=== PATIENT | male | born 1935 | race Caucasian/White ===

== ENCOUNTER → 2019-12-30 | Outpatient (CLI) | payer MEDICARE, BC ==
[~2019-12-30] VITALS: Ht 182 cm; Wt 78.0 kg
[~2019-12-30] MED LIST: HOLD METFORMIN - RECEIVED CONTRAST 20 ML VIAL IV SCH; IOHEXOL 350 MG/ML 150 ML (OMNIPAQUE 350) VIAL IV ONE; NS 100 ML (IVPB) BAG IV ONE; REGADENOSON 0.4 MG/5 ML SYR (LEXISCAN) IV ONE
[2019-12-30 09:56] LABS: BASOPHILS % (AUTO) 0 % (0-10); EOSINOPHILS # (AUTO) 0.1 10^3/uL (0.0-0.3); EOSINOPHILS % (AUTO) 2 % (0-10); HEMATOCRIT 46 % (40-54); HEMOGLOBIN 15.6 G/DL (13.3-17.7); LYMPHOCYTES # (AUTO) 1.3 X 10^3 (1.0-4.0); LYMPHOCYTES % (AUTO) 19 % (12-44); MEAN CORPUSCULAR HEMOGLOBIN 32 PG (25-34); MEAN CORPUSCULAR HGB CONC 34 G/DL (32-36); MEAN CORPUSCULAR VOLUME 95 FL (80-99); MONOCYTES % (AUTO) 14 % (0-12); NEUTROPHILS # (AUTO) 4.7 X 10^3 (1.8-7.8); NEUTROPHILS % (AUTO) 66 % (42-75); PLATELET COUNT 207 10^3/uL (130-400); WHITE BLOOD COUNT 7.1 10^3/uL (4.3-11.0)
[2019-12-30 10:20] LABS: ALANINE AMINOTRANSFERASE 17 U/L (0-55); ALBUMIN 4.1 GM/DL (3.2-4.5); ALKALINE PHOSPHATASE 66 U/L (40-136); BILIRUBIN,TOTAL 0.8 MG/DL (0.1-1.0); BUN/CREATININE RATIO 20; CALCIUM 9.1 MG/DL (8.5-10.1); CARBON DIOXIDE 30 MMOL/L (21-32); CHLORIDE 103 MMOL/L (98-107); CHOLESTEROL 142 MG/DL (< 200); CREATININE SERUM 0.95 MG/DL (0.60-1.30); ERYTHROCYTE SEDIMENTATION RATE 1 MM/HR (0-30); GFR ESTIMATED > 60; GLUCOSE 102 MG/DL (70-105); HDL CHOLESTEROL 72 MG/DL (40-60); MAGNESIUM 2.1 MG/DL (1.6-2.4); POTASSIUM 4.3 MMOL/L (3.6-5.0); SODIUM 141 MMOL/L (135-145); TOTAL PROTEIN 7.1 GM/DL (6.4-8.2); TRIGLYCERIDES 57 MG/DL (<150); VLDL CHOLESTEROL 11 MG/DL (5-40)
[2019-12-30] MEDS: CATHETER FLUSH 10 ML SYR IV PRN (11:02)
--- NOTE | 2019-12-30 12:16 | Diagnostic Imaging Report ---
EXAMINATION: CT angiography of the chest. TECHNIQUE: Contrast enhanced thin section helical images were obtained through the chest with intravenous contrast timed for the optimal opacification of the arterial structures per CTA protocol. Post-processing, reconstructions and interpretation of angiographic images of the vessels was performed. 3D MIP reconstructions were performed and reviewed. All CT scans use one or more of the following dose optimizing techniques: automated exposure control, MA and/or KvP adjustment based on a patient size and exam type, or iterative reconstruction. HISTORY: Aortic aneurysm. COMPARISON: None available. FINDINGS: The aortic root measures 3.8 x 3.9 x 3.8 cm when measured from commissure to cusp. The sinotubular junction measures 3.8 x 3.4 cm. The ascending aorta measures 3.8 x 4.0 cm. The arch measures 3.4 x 3.2 cm. There is no edema or pneumonia. No pleural effusion. No pneumothorax. No suspicious nodules. There are mild nonspecific peripheral reticulations. There is no axillary or supraclavicular lymphadenopathy. There is no mediastinal lymphadenopathy. The ventricles are mildly dilated. There are moderate coronary artery calcifications. No pericardial effusion. Limited views of the upper abdomen show simple cysts in the liver and cholelithiasis. There are no suspicious osseus lesions. There are compression fractures of T12, T11, T6, T5, T4 and T3. The T5 compression fracture is severe with 80% height loss. These are suspected to be chronic. IMPRESSION: 1. . Aortic root is normal in caliber. Ascending aorta is borderline enlarged measuring up to 4.0 cm. Dictated by: Dictated on workstation # [id number]
[2019-12-30 13:15] VITALS: BP 142/94
== END ==
LOC: RAD 10:15
PROVIDERS: ATTEND Internal Medicine Cardiovascular Disease
DX: I25.10 Atherosclerotic heart disease of native coronary artery without angina pectoris (principal); I71.9 Aortic aneurysm of unspecified site, without rupture; I10 Essential (primary) hypertension; E78.5 Hyperlipidemia, unspecified; I65.29 Occlusion and stenosis of unspecified carotid artery; Z86.79 Personal history of other diseases of the circulatory system
CPT/HCPCS: 71275; 78452; 80053; 80061; 83735; 84443; 85025; 85652; 93017; 93306; A9502; 36415

== ENCOUNTER → 2020-01-02 | Outpatient (CLI) | payer MEDICARE, BC ==
[~2020-01-02] MED LIST changes: +CATHETER FLUSH 10 ML SYR IV PRN; -HOLD METFORMIN - RECEIVED CONTRAST 20 ML VIAL IV SCH; -IOHEXOL 350 MG/ML 150 ML (OMNIPAQUE 350) VIAL IV ONE; -NS 100 ML (IVPB) BAG IV ONE; -REGADENOSON 0.4 MG/5 ML SYR (LEXISCAN) IV ONE
--- NOTE | 2020-01-02 14:20 | Diagnostic Imaging Report ---
PROCEDURE: CT abdomen and pelvis without contrast. TECHNIQUE: Multiple contiguous axial images were obtained through the abdomen and pelvis without the use of intravenous contrast. Auto Exposure Controls were utilized during the CT exam to meet ALARA standards for radiation dose reduction. INDICATION: Prostate cancer. FINDINGS: There are no prior CT abdomen/pelvis examinations available for comparison. The recent CTA chest exam of 12/30/2019 did note cholelithiasis and benign-appearing cysts involving the liver. Those findings are again evident on this study. The spleen, pancreas, adrenals, kidneys, aorta, and inferior vena cava show no sign of an acute abnormality. The stomach is partially filled with fluid and consequently difficult to assess. There are numerous diverticula throughout the sigmoid and descending colon, but there is no evidence for acute diverticulitis; however, a portion of the sigmoid colon has extended into the left inguinal canal. I would estimate the length of this segment of the colon to be approximately 25 cm. There is no obstruction of the colon, but this portion of the colon may be incarcerated. There is no pelvic mass or free fluid collection noted. The prostate gland is not enlarged. The urinary bladder is grossly unremarkable. The appendix is not well visualized, but there are no indirect signs of acute appendicitis. The suspected chronic compression fracture of T12 seen on the CTA chest exam is again evident. There is also a mild compression deformity of the superior endplate of L1 and I suspect this finding is chronic in nature. However, there is a 30-40% compression fracture of the superior endplate of L4. This injury is indeterminate in age but could be subacute. If further imaging is desired, then MRI will be recommended. The chronic pulmonary changes involving the lung bases noted on the prior study are again evident and no different. IMPRESSION: 1. There is diverticulosis of the sigmoid and descending colon, but there is no evidence for acute diverticulitis; however, a segment of the sigmoid colon has extended into the left inguinal canal. There is no obstruction of the bowel, but this segment of the colon may be incarcerated. 2. There is no acute abnormality of the abdomen or pelvis noted otherwise. 3. There is cholelithiasis without evidence for acute cholecystitis. 4. The compression deformity of the superior endplate of L4 is indeterminate in age. Recommendations as above. Dictated by: Dictated on workstation # [id number]
--- NOTE | 2020-01-02 17:19 | Diagnostic Imaging Report ---
INDICATION: Prostate carcinoma. Patient was administered 24.9 mCi technetium 99m MDP intravenously and whole-body imaging was performed after a three-hour delay. COMPARISON: No prior studies are available for comparison. Normal uptake of activity by the axial and appendicular skeleton is noted. There is uptake by the kidneys with excretion into the urinary bladder. There is a focus of intense uptake at the level of the mid thoracic spine to the right of midline near the costovertebral junction. Significant degenerative changes are identified on the CT chest performed on 12/30/2019. There is also mild uptake in the lumbar spine, likely correlating with the compression fracture at L4 seen on CT. There is mild uptake bilateral knees and feet which is degenerative. No other suspicious foci are seen. IMPRESSION: Chronic appearing changes. No definite scintigraphic evidence of osseous metastatic disease is identified. Dictated by: Dictated on workstation # [id number]
== END ==
LOC: CARD 11:58
PROVIDERS: ATTEND Urology
DX: C61 Malignant neoplasm of prostate (principal); K57.30 Diverticulosis of large intestine without perforation or abscess without bleeding; K80.20 Calculus of gallbladder without cholecystitis without obstruction
CPT/HCPCS: 74176; 78306; A9503

== ENCOUNTER → 2020-01-05 | Outpatient (CLI) | payer MEDICARE, BC ==
[~2020-01-05] MED LIST changes: -CATHETER FLUSH 10 ML SYR IV PRN; +HOLD METFORMIN - RECEIVED CONTRAST 20 ML VIAL IV SCH; +IOHEXOL 350 MG/ML 150 ML (OMNIPAQUE 350) VIAL IV ONE; +NS 100 ML (IVPB) BAG IV ONE
--- NOTE | 2020-01-05 12:52 | Diagnostic Imaging Report ---
CTA AORTA W LEW RUNOFF W/WO Technique: CT imaging of the abdomen, pelvis and bilateral lower extremities was performed with IV contrast. 3-D MIP reformats are created and submitted. Automatic exposure controls were utilized to keep dose as low as reasonably achievable. Indication: Coronary artery disease, hyperlipidemia, carotid arterial disease. History of aneurysm. Comparison: CT chest of 12/30/2019. CT abdomen pelvis of 01/02/2020. Findings: Aorta: The abdominal aorta is normal in caliber with mild atherosclerotic plaquing and no dissection. The bilateral common iliac arteries are tortuous and the left is borderline aneurysmal measuring 1.5 cm. Both common iliac arteries are widely patent. The bilateral internal and external iliac arteries are patent. The celiac and superior mesenteric arteries are patent. Bilateral renal arteries are also patent without appreciable stenosis. Right lower extremity: The common femoral artery is normal. The superficial femoral artery is widely patent throughout the thigh without stenosis or plaquing. Profunda femoris arteries are normal. Popliteal artery is normal. There is a 3 vessel branching pattern in the proximal lower leg. However, in the mid aspect of the lower leg into the level of the ankle there is poor contrast opacification as the contrast bolus was likely "outrun". However, peripheral vascular disease could also account for this suboptimal opacification. Left lower extremity: Common femoral artery is patent. Superficial femoral artery is widely patent throughout the thigh and there is no stenosis or plaquing. Profunda femoris branches are normal. Popliteal artery is widely patent. There is a 3 vessel branching pattern in the proximal lower leg. However, there is suboptimal opacification of the lower leg arteries to assess for patency. Atherosclerotic plaquing is present. Abdomen and pelvis: The abdomen and pelvis are more completely evaluated on CT from 01/02/2020. Since that examination, there has been no change in the cholelithiasis and hepatic cysts. No features of intra-abdominal neoplasm or acute process. No lymphadenopathy. Indirect left inguinal hernia containing loop of colon and fat is unchanged. No worrisome focal osseous lesions. IMPRESSION: 1. No abdominal aortic aneurysm. Borderline aneurysmal dilatation of the left common iliac artery measuring 1.5 cm. 2. Widely patent arteries throughout the thighs and proximal lower legs. 3. Assessment of the lower leg arteries is limited due to suboptimal opacification and calcified plaquing. Arterial Doppler of the lower legs may provide assessment of these arteries if deemed clinically indicated. 4. Unchanged left inguinal indirect hernia containing a loop of colon. No obstruction or strangulation. Dictated by: Dictated on workstation # [id number]
== END ==
LOC: RAD 09:45
PROVIDERS: ATTEND Internal Medicine Cardiovascular Disease
DX: I70.202 Unspecified atherosclerosis of native arteries of extremities, left leg (principal); K40.90 Unilateral inguinal hernia, without obstruction or gangrene, not specified as recurrent; I65.23 Occlusion and stenosis of bilateral carotid arteries; E78.5 Hyperlipidemia, unspecified; I10 Essential (primary) hypertension; I25.10 Atherosclerotic heart disease of native coronary artery without angina pectoris; Z86.79 Personal history of other diseases of the circulatory system
CPT/HCPCS: 75635

== ENCOUNTER 2020-02-20 10:26 | Outpatient (RCR) | payer MEDICARE, BC | END 2020-05-20 | disposition home or self-care (01) | LOC: ONC 10:26 | PROVIDERS: ATTEND Radiology Radiation Oncology | DX: C61 Malignant neoplasm of prostate (principal) | CPT/HCPCS: 99204 ==

== ENCOUNTER 2020-09-14 05:41 | Outpatient (CLI) | payer MEDICARE, BC ==
[~2020-09-14] VITALS: Ht 182.9 cm; Wt 77.2 kg
[2020-09-15] MEDS ORDERED: GLUC-173 PO (14:11)
[2020-09-15] MEDS ORDERED: ATOR20TA49 PO (14:11)
[2020-09-15] MEDS ORDERED: ZINC50TA58 PO (14:11)
[2020-09-15] MEDS ORDERED: MAGN500C15 PO (14:11)
[2020-09-15] MEDS ORDERED: MULT-974 PO (14:11)
[2020-09-15] MEDS ORDERED: FLAX10004 PO (14:11)
[2020-09-15] MEDS ORDERED: CALC600T91 PO (14:11)
[2020-09-15] MEDS ORDERED: ASPI-999 PO (14:11)
[2020-09-15] MEDS ORDERED: UBID100C17 PO (14:11)
[2020-09-15] MEDS ORDERED: CARV3.122 PO (14:11)
[2020-09-15] MEDS ORDERED: VIT1CAPS44 PO (14:11)
[2020-09-15] MEDS ORDERED: CHOL100045 PO (14:11)
== END 2020-09-15 14:44 | disposition home or self-care (01) ==
LOC: PREOP 05:41
PROVIDERS: ATTEND Urology
DX: Z01.818 Encounter for other preprocedural examination (principal)

== ENCOUNTER 2020-09-21 06:50 | Day surgery (SDC) | payer MEDICARE, BC ==
[~2020-09-21] VITALS: Ht 182.9 cm; Wt 77.2 kg
[2020-09-21] VITALS (10 sets, daily range): BP systolic 119–151; BP diastolic 75–98
[~2020-09-21 06:50] MED LIST changes: +ASPI-999 PO; +ATOR20TA49 PO; +CALC600T91 PO; +CARV3.122 PO; +CHOL100045 PO; +FLAX10004 PO; +GLUC-173 PO; -HOLD METFORMIN - RECEIVED CONTRAST 20 ML VIAL IV SCH; -IOHEXOL 350 MG/ML 150 ML (OMNIPAQUE 350) VIAL IV ONE; +MAGN500C15 PO; +MULT-974 PO; -NS 100 ML (IVPB) BAG IV ONE; +UBID100C17 PO; +VIT1CAPS44 PO; +ZINC50TA58 PO
--- NOTE | 2020-09-21 07:22 | Progress Note-Pre Operative ---
Pre-Operative Progress Note H&P Reviewed The H&P was reviewed, patient examined and no changes noted. Date Seen by Provider: Sep 21, 2020 Time Seen by Provider: :22 Date H&P Reviewed: Sep 21, 2020 Time H&P Reviewed: 07:22 Pre-Operative Diagnosis: CA PROSTATE STEPHEN LOUISE MD Sep 21, 2020 07:22
--- NOTE | 2020-09-21 07:30 | Progress Note-Post Operative ---
Post-Operative Progess Note Surgeon (s)/Php Web Developer (s) Surgeon STEPHEN LOUISE MD Php Web Developer: NONE Pre-Operative Diagnosis CA PROSTATE Post-Operative Diagnosis SAME Procedure & Operative Findings Date of Procedure 09/21/20 Procedure Performed/Findings SPACE OAR Anesthesia Type GENERAL Estimated Blood Loss Estimated blood loss (mL): NEGLIGIBLE Specimens/Packing Specimens Removed NONE Packing: NONE STEPHEN LOUISE MD Sep 21, 2020 07:29
--- NOTE | 2020-09-21 07:32 | Discharge Inst-Urology ---
Discharge Inst-Urology Reconcile Patient Problems Problems Reviewed?: Yes Final Diagnosis CA PROSTATE Patient Instructions/Follow Up Plan/Assessment/Instructions Please make appointment to been seen in office in 2 weeks. Rest for 48 hours May resume ASA in 48 hours if no bleeding Keep bowels soft and moving Increase oral fluids for 48 hours and then as needed. Diet as tolerated. If questions or concerns contact your physician Or seek help at emergency department. STEPHEN LOUISE MD Sep 21, 2020 07:32
[2020-09-21] MEDS ORDERED: LACTATED RINGERS 1,000 ML IV PRN (07:45)
[2020-09-21] MEDS ORDERED: cefTRIAXone 1,000 MG in WATER (STERILE) FOR INJECTION 10 ML IV ONE (07:45)
[2020-09-21] MEDS ORDERED: fentaNYL INJ 100 MCG/2 ML AMP ONE (08:39)
[2020-09-21] MEDS ORDERED: ONDANSETRON 4 MG/2 ML (SDV) Z0FRAN ONE (08:39)
[2020-09-21] MEDS ORDERED: LIDOCAINE PF 2% 5 ML (XYLOCAINE) VIAL ONE (08:39)
[2020-09-21] MEDS ORDERED: proPOfol 200 MG/20 ML (DIPRIVAN) VIAL IV ONE (08:39)
[2020-09-21] MEDS ORDERED: SEVOFLURANE (ULTANE) 15 ML INHAL SOLN ONE (08:39)
[2020-09-21] MEDS ORDERED: TMSL.4C PO (09:36)
[2020-09-21] MEDS ORDERED: CIPR-225 PO (09:36)
[2020-09-21] MEDS ORDERED: ONDANSETRON 4 MG/2 ML (SDV) Z0FRAN IVP PRN (09:45)
[2020-09-21] MEDS ORDERED: HYDROmorphone 2 MG/ML VIAL (DILAUDID) IV ONE (09:45)
--- NOTE | 2020-09-21 16:37 | Anesthesia-General Post-Op ---
General Patient Condition Mental Status/LOC: Same as Preop Cardiovascular: Satisfactory Nausea/Vomiting: Absent Respiratory: Satisfactory Pain: Controlled Complications: Absent Post Op Complications Complications None Follow Up Care/Instructions Patient Instructions None needed. Anesthesia/Patient Condition Patient Condition Patient is doing well, no complaints, stable vital signs, no apparent adverse anesthesia problems. No complications reported per nursing. D/C home per [facility] Criteria: Yes YADIRA ÁLVAREZ CRNA Sep 21, 2020 16:37
== END 2020-09-21 11:30 | disposition home or self-care (01) ==
LOC: SDC 06:50
PROVIDERS: ATTEND Urology
DX: C61 Malignant neoplasm of prostate (principal); G89.29 Other chronic pain; M54.9 Dorsalgia, unspecified; I25.10 Atherosclerotic heart disease of native coronary artery without angina pectoris; I42.9 Cardiomyopathy, unspecified; I10 Essential (primary) hypertension; I65.23 Occlusion and stenosis of bilateral carotid arteries; I73.9 Peripheral vascular disease, unspecified; I71.2 Thoracic aortic aneurysm, without rupture; E78.2 Mixed hyperlipidemia; Z79.82 Long term (current) use of aspirin; Z79.899 Other long term (current) drug therapy
CPT/HCPCS: 55874; 87081; C1889

== ENCOUNTER → 2020-11-29 | Outpatient (RCR) | payer MEDICARE, BC ==
[~2020-11-29] MED LIST changes: +CIPR-225 PO; +TMSL.4C PO
== END | disposition home or self-care (01) ==
LOC: ONC 08-31 12:58
PROVIDERS: ATTEND Radiology Radiation Oncology
DX: Z51.0 Encounter for antineoplastic radiation therapy (principal); C61 Malignant neoplasm of prostate
CPT/HCPCS: 77290; 77300; 77301; 77334; 77336; 77338; 77385; 99212

== ENCOUNTER 2021-02-27 09:45 | Outpatient (RCR) | payer MEDICARE, BC ==
[~2021-02-27 09:45] MED LIST changes: +CHOL10004 PO; -CHOL100045 PO
== END 2021-03-01 | disposition home or self-care (01) ==
LOC: ONC 09:45
PROVIDERS: ATTEND Radiology Radiation Oncology
DX: Z51.0 Encounter for antineoplastic radiation therapy (principal); C61 Malignant neoplasm of prostate
CPT/HCPCS: 77336; 77385

== ENCOUNTER 2021-12-28 05:31 | Outpatient (CLI) | payer MEDICARE, BC ==
[~2021-12-28] VITALS: Ht 182.9 cm; Wt 76.4 kg
[2021-12-29] MEDS ORDERED: ASPI81TA16 PO (15:31)
== END 2021-12-30 12:38 | disposition home or self-care (01) ==
LOC: PREOP 05:31
PROVIDERS: ATTEND Surgery
DX: Z01.818 Encounter for other preprocedural examination (principal); K40.90 Unilateral inguinal hernia, without obstruction or gangrene, not specified as recurrent

== ENCOUNTER 2022-01-04 06:00 | Day surgery (SDC) | payer MEDICARE ==
[2022-01-04] VITALS (11 sets, daily range): BP systolic 123–150; BP diastolic 79–99
[~2022-01-04] VITALS: Ht 182.9 cm; Wt 76.4 kg
[~2022-01-04 06:00] MED LIST changes: +ASPI81TA16 PO
[2022-01-04] MEDS: LACTATED RINGERS 1,000 ML IV PRN ×2 (06:37→09:43)
[2022-01-04] MEDS ORDERED: ceFAZolin INJECTION 1,000 MG VIAL IV ONE (06:45)
[2022-01-04] MEDS ORDERED: ROCURONIUM 10 MG/ML 5 ML SYRINGE IV ONE (07:16)
[2022-01-04] MEDS ORDERED: proPOfol 200 MG/20 ML (DIPRIVAN) VIAL IV ONE (07:16)
[2022-01-04] MEDS ORDERED: LIDOCAINE PF 2% 5 ML (XYLOCAINE) VIAL ONE (07:16)
[2022-01-04] MEDS ORDERED: fentaNYL INJ 100 MCG/2 ML AMP ONE (07:16)
[2022-01-04] MEDS ORDERED: SEVOFLURANE (ULTANE) 15 ML INHAL SOLN ONE ×2 (07:16→10:36)
[2022-01-04] MEDS ORDERED: ONDANSETRON 4 MG/2 ML (SDV) Z0FRAN ONE (07:16)
[2022-01-04] MEDS ORDERED: LIDOCAINE/EPI 2% 1:200,00 (XYLOCAINE) 20 ML VIAL ONE (07:17)
[2022-01-04] MEDS ORDERED: NEOSTIGMINE (BLOXIVERZ ) 1 MG/1ML 10 ML VIAL ONE (10:20)
[2022-01-04] MEDS ORDERED: GLYCOPYRROLATE 0.2 MG/ML (ROBINUL) 2 ML VIAL ONE (10:20)
--- NOTE | 2022-01-04 10:34 | Progress Note-Post Operative ---
Post-Operative Progess Note Surgeon (s)/Integration Technician (s) Surgeon SEMAUS CHEN DO Integration Technician: Kayode Pre-Operative Diagnosis incarcerated left inguinal hernia Post-Operative Diagnosis Incarcerated Left inguinal hernia - Indirect Incarcerated right inguinal hernia - direct Right Femoral hernia B/L Cord lipoma Procedure & Operative Findings Date of Procedure 01/04/22 Procedure Performed/Findings 1) B/L Laparoscopic inguinal herniarraphy with mesh placement 2) Right femoral herniarrapy with mesh 3) Excision of B/L Cord Lipoma After informed consent was obtained, the patient was brought to the operating room and placed on the operating table in a supine position. He was sterilely prepped and draped in a normal fashion. Local lidocaine was used to infiltrate the skin above the umbilicus. I made an incision with #11 blade, carried down to the skin into subcutaneous tissue and then deepened down the subcutaneous tissue with Bovie electrocautery down to the fascia. Fascia was incised with Bovie electrocautery and bluntly entered the abdomen, swept a finger around, placed 0 Vicryl [id number]-cl-[id number] suture and placed limited trocar port under direct visualization. Created pneumoperitoneum, able to visualize the hernia and took a picture of this and then placed two 8 mm ports about 10 cm on either side of the midline port using a local lidocaine, 11 blade for stab incision and then advanced the robotic port under direct visualization. Once this was in, I then placed the patient in Trendelenburg and then placed the working instruments, the fenestrated bipolar and the scissors. Looked on the left side and saw a very large incarcerated indirect inguinal hernia. I could see the beginnings of a direct hernia defect on the right side. Next, I came across the peritoneum on the left approximately 8 cm away from the hernia defect, going across laterally from the median umbilical ligament out approximately 17cm. I then carefully dissected the visceral peritoneum away and down and then in the midline, went through the parietal side and dissected down to the pubic tubercle, dissecting this down carefully pushing the peritoneum away, I was able to then visualize the pubic tubercle and Blu's ligament. As I did this I encountered a large hernia on the right; Direct inguinal hernia with fat stuck in it. I went 2 cm posterior and at this point, we then had a critical view of the dissection, able to dissect 2 cm across the midline to the right side, 2 cm posterior to the Blu's ligament, able to then parietalize the vas deferens and spermatic vessels right at the groove between Blu's and iliac vein and able to dissect, make sure there was no peritoneum between those two, able to see the indirect hernia space, took a picture of this, looked at the femoral space (no hernia seen). Then I carefully teased out the hernia sac and could visualize the indirect hernia space. Next I looked on the cord and cord structures. There was a large cord lipoma that I was able to reduce and cut off. This was then removed through the port to get it out of the peritoneal space; at the end of the case. I could clearly see the inguinal canal and the indirect space. Next I carried the posterior lateral dissection all the way out. Because I encountered the incarcareated hernia on the right I elected to repair this as well. Therefore, on the right I I went 2 cm posterior and began dissecting out laterally taking the peritoneum down in order to place mesh. This was carried down and connected to the Left sides dissection. So at this point, I then had a critical view of the dissection on the right. I was able to dissect 2 cm across the midline to the right side, 2 cm posterior to the Blu's ligament, able to then parietalize the vas deferens and sperma tic vessels right at the groove between Blu's and iliac vein and able to dissect, make sure there was no peritoneum between those two, able to see the indirect hernia space, took a picture of this, looked at the femoral space and found a hernia; removed fat from the femoral space. Then I carefully teased everything off cord and cord structures (very minimal indirect sac) and could visualize the indirect hernia space. Next I looked on the cord and cord structures. There was a large cord lipoma that I was able to reduce and cut off. This was then removed through the port to get it out of the peritoneal space; at the end of the case. I could clearly see the inguinal canal and the indirect space. I then placed a 10 x 16 Midweight Bard 3DMax mesh, on the right. On the left I placed a 12 x 17 Midweight Bard 3D Max. Both laid in nicely, covered the hernia defects and the rest of the area. It was above the peritoneum, sutured both at the pubic tubercle with a 3-0 Vicryl suture and tied this off. I also sutured out laterally to hold mesh in position with 3-0 Vicryl, both sides. They appeared to lay in very nicely. I then brought down the pneumoperitoneum to about 8 mmHg and then started closing the peritoneum. Started laterally and used a 2-0 V-lock barbed suture to start a running stitch to close the peritoneum. This was done on both sides and closed nicely, took a picture of the closure at this point, then removed all needles had switched to a suture courtesy van driver from the scissors. The patient was then placed back supine, removed all ports under direct visualization, allowed pneumoperitoneum to escape and then closed the supraumbilical incision, closing the fascia with 0 Vicryl suture previously placed. Copiously irrigated all incisions and then closed the two small 8 mm incisions with two interrupted 4-0 undyed Monocryl subcuticular stitches and closed the supraumbilical incision with three interrupted undyed Monocryl subcuticular stitch. Area was cleaned and dried. Dermabond was placed. The patient tolerated the procedure. The sponge, instrument and needle counts were correct at the end of the case. Dr. Headley assisted during this surgery by making incisions, closing incisions, helping to identify anatomy and passing/retrieving suture and needles. Anesthesia Type GET Estimated Blood Loss Estimated blood loss (mL): less than 20ml Specimens/Packing Specimens Removed b/l cord lipoma SEAMUS CHEN DO Jan 04, 2022 10:34
--- NOTE | 2022-01-04 10:47 | Anesthesia-General Post-Op ---
General Patient Condition Mental Status/LOC: Same as Preop Cardiovascular: Satisfactory Nausea/Vomiting: Absent Respiratory: Satisfactory Pain: Controlled Complications: Absent Post Op Complications Complications None Follow Up Care/Instructions Patient Instructions None needed. Anesthesia/Patient Condition Patient Condition Patient is doing well, no complaints, stable vital signs, no apparent adverse anesthesia problems. No complications reported per nursing. JAIRO PADILLA CRNA Jan 04, 2022 10:47
[2022-01-04] MEDS ORDERED: ACHD5005 PO (10:49)
--- NOTE | 2022-01-04 10:50 | Discharge Inst-Surgical ---
Discharge Inst-Surgical Depart Medication/Instructions New, Converted or Re-Newed RX: Transmitted to Pharmacy Patient Instructions Follow up Appt: Make appointment for 1 week. [phone] Instructions: No lifting greater than 20 pounds. No strenuous activity. May shower in 24 hours, no tub bath or soaking. Use incentive spirometer at home as directed. No Smoking Skin/Wound Care: May remove bandages in am. You need to leave the Dermabond on incision it will fall off on it's own. Symptoms to Report: Appetite Changes, Extremity Discoloration, Numbness/Tingling, Swelling Increased, Bleeding Excessive, Eyesight Changes, Pain Increased, Urine Color Change, Constipation(Persistent), Fever over 101 degree F, Pain/Pressure in chest, Urinating Difficulty, Cough Up/Vomit Blood, Heart Beat Irreg/Pounding, Pain/Pressure in jaw, Cramps in feet or legs, Lightheadedness, Pain/Pressure in shoulder, Diarrhea(Persistent), Memory Changes Suddenly, Questions/Concerns, Weight gain consecutive days, Dizziness/Fainting, Nausea/Vomiting, Shortness of Breath, Weight gain over 2 pounds If questions or concerns contact your physician Or seek help at emergency department. Activity Activity as Tolerated: Yes Activity Instructions: Avoid Stress to Incision Driving Instructions: No Driving/Refer to Dr. Salas Discharge Diet: No Restrictions Diet After 24 Hours: Clear Liquid if Nauseous If Any Problems/Questions/Issu: Contact Your Physician, Go to Emergency Room Skin/Wound Care Infection Signs and Symptoms: Increased Redness, Foul Odor of Wound, Increased Drainage, Skin Itchy or Has a Rash, Increased Swelling, Temperature Above 101 F Bathing Instructions: Shower Stitches/[place]/Dermabond Dis: SEAMUS Callaway DO Jan 04, 2022 10:49
[2022-01-04] MEDS ORDERED: morphine INJ 10 MG/ML 1ML (SYR OR VIAL) IVP ONE (11:00)
[2022-01-04] MEDS ORDERED: fentaNYL INJ 100 MCG/2 ML AMP IVP ONE (11:00)
[2022-01-04] MEDS ORDERED: ONDANSETRON 4 MG/2 ML (SDV) Z0FRAN IVP PRN (11:00)
[2022-01-04] MEDS ORDERED: HYDROcodone/APAP 5 MG/325 MG (LORTAB) TAB ONE (12:39)
[2022-01-04] MEDS ORDERED: HYDROcodone/APAP 5 MG/325 MG (LORTAB) TAB PO ONE (12:45)
== END 2022-01-04 13:33 | disposition home or self-care (01) ==
LOC: SDC 06:00
PROVIDERS: ATTEND Surgery
DX: K40.00 Bilateral inguinal hernia, with obstruction, without gangrene, not specified as recurrent (principal); K41.90 Unilateral femoral hernia, without obstruction or gangrene, not specified as recurrent; D17.6 Benign lipomatous neoplasm of spermatic cord; Z87.891 Personal history of nicotine dependence
CPT/HCPCS: 49650; 49659; 87081; 88304; C1781 ×2

== ENCOUNTER 2023-01-23 11:11 | Day surgery (SDC) | payer MEDICARE ==
[~2023-01-23] VITALS: Ht 180 cm; Wt 70.2 kg
[2023-01-23] VITALS (8 sets, daily range): BP systolic 132–149; BP diastolic 80–109
[~2023-01-23 11:11] MED LIST changes: +ACHD5005 PO
[2023-01-23] MEDS ORDERED: NS IV 1000 ML 1,000 ML ONE (11:23)
[2023-01-23] MEDS ORDERED: LIDOCAINE 1% INJ 20 ML VIAL ONE (11:23)
[2023-01-23] MEDS ORDERED: HEParin (CATH LAB) 2,000 ML IV ONE (11:23)
[2023-01-23] MEDS ORDERED: NS IV 1000 ML 1,000 ML IV ONE (11:30)
[2023-01-23 11:58] LABS: HEMATOCRIT 43 % (40-54); HEMOGLOBIN 14.3 g/dL (13.3-17.7); MEAN CORPUSCULAR HEMOGLOBIN 33 pg (25-34); MEAN CORPUSCULAR HGB CONC 33 g/dL (32-36); MEAN CORPUSCULAR VOLUME 98 fL (80-99); MEAN PLATELET VOLUME 10.1 fL (9.0-12.2); PLATELET COUNT 194 10^3/uL (130-400); WHITE BLOOD COUNT 5.7 10^3/uL (4.3-11.0)
[2023-01-23 12:12] LABS: PROTHROMBIN TIME PATIENT 13.2 SEC (12.2-14.7)
[2023-01-23 12:20] LABS: ALBUMIN 4.1 GM/DL (3.2-4.5); BILIRUBIN,TOTAL 0.6 MG/DL (0.1-1.0); CALCIUM 8.9 MG/DL (8.5-10.1); CREATININE SERUM 0.81 MG/DL (0.60-1.30); TOTAL PROTEIN 7.1 GM/DL (6.4-8.2)
[2023-01-23] MEDS ORDERED: ASPI-999 PO (12:21)
[2023-01-23] MEDS ORDERED: MAGN250T13 PO (12:21)
[2023-01-23] MEDS ORDERED: CYAN250010 PO (12:21)
[2023-01-23] MEDS ORDERED: MIDAZOLAM INJ 5 MG/5 ML VIAL ONE (15:49)
[2023-01-23] MEDS ORDERED: fentaNYL INJECTION 100 MCG/2 ML VIAL ONE (15:49)
--- NOTE | 2023-01-23 17:03 | Cardiac Procedure Note-CS/ASA ---
Pre-Procedure Note Pre-Op Procedure Note Date of Available H&P: Jan 19, 2023 Date H&P Reviewed: Jan 23, 2023 Time H&P Reviewed: 16:00 History & Physical: H&P Reviewed, No changes noted Moderate Sedation PreProcedure ASA Score 3 Airway Lungs Heart ASA score ASA 1: a normal healthy patient ASA 2: a patient with a mild systemic disease (mid diabetes, controlled hypertension, obesity ASA 3: a patient with a severe systemic disease that limits activity (angina, COPD, prior Myocardial infarction) ASA 4: a patient with an incapacitating disease that is a constant threat to life (CHF, renal failure) ASA 5: a moribund patient not expected to survive 24 hrs. (ruptured aneurysm) ASA 6: a declared brain- patient whose organs are being harvested. For emergent operations, add the letter E after the classification Mallampati Classification Grade 2 Sedation Plan Analgesia, Amnesia, Plan communicated to team members The patient is an appropriate candidate to undergo the planned procedure, sedation, and anesthesia. The patient immediately re-assessed prior to indication. NICHOLE BOWER MD FACP FAC CCDS Jan 23, 2023 17:03
--- NOTE | 2023-01-23 17:21 | Cardiac Cath Report ---
CARDIAC CATHETERIZATION DATE OF PROCEDURE: 01-23-23 INDICATION: Chest discomfort and shortness of breath HISTORY: The patient is a 87 year old male with a h/o CAD and now with chest discomfort and shortness of breath PROCEDURES PERFORMED: 1. []. PROCEDURE DESCRIPTION: After informed consent and in the fasting state, left heart catheterization was performed through the R femoral artery utilizing a 6 Yoruba system by percutaneous approach. 45 cm sheath used because of marked aorto-iliac tortuosity and inadequate support from standard-length sheath. JL5 for L cors; JR4 for R cor; MP1 for LHC and LV angio. All catheters were exchanged over a guidewire. Mynx closure after angiography of the R fem artery after long sheath replaced with short sheath HEMODYNAMICS: LVEDP 14 mmHg, no significant pressure gradient on pullback across the aortic valve CORONARY ANGIOGRAPHY: Cor calcium present Left main coronary artery: mild proximal tapering Left anterior descending coronary artery: Patent mid vessel stent, proximal vessel has approx 40% stenosis Left circumflex coronary artery: mild to mod, diffuse plaque Right coronary artery: dominant, mod plaque that is diffuse LV Angio FERNANDEZ projection only: LVEF 60%, localized apical dyskinesis (nipple aneurysm) IMPRESSION: 1. Mild to mod diffuse CAD. Patent stent in mid LAD 2. LVEDP 24 mmHg 3. LVEF 60%, localized apical dyskinesis (nipple aneurysm) PLAN Med Rx. Discussed with the patient. F/u advised NICHOLE BOWER MD FACP [facility] Jan 23, 2023 17:21
--- NOTE | 2023-01-23 17:25 | Discharge Inst-Cardiology ---
Discharge Inst-Cardiac Discharge Medications Continued Medications: Aspirin (Aspirin) 81 Mg Tab.chew 81 MG PO HS, TAB Atorvastatin Calcium (Lipitor) 20 Mg Tablet 20 MG PO DAILY, TAB Carvedilol (Carvedilol) 3.125 Mg Tablet 3.125 MG PO HS, TAB LAST FILLED 03/31/2023 #180 180 DAY SUPPLY Cyanocobalamin (Vitamin B-12) (Vitamin B12) 2,500 Mcg Tablet 2500 MCG PO DAILY, TAB Magnesium Oxide (Magnesium) 250 Mg Tablet 250 MG PO DAILY, TAB Multivitamin (Multi-Vitamin Daily) 1 Each Tablet 1 EACH PO DAILY, TAB NICHOLE BOWER MD FACP FAC CCDS Jan 23, 2023 17:25
--- NOTE | 2023-01-23 17:25 | Discharge Inst-Post CATH ---
Discharge Inst-CATH/EP Post Cardiac Cath/EP D/C Inst Follow Up/Plan F/u with Dr Jensen in one month ACTIVITY * Go Home directly and rest. * Limit activity of the leg (or wrist if it was used) for 7 days including aerobics, swimming, jogging, bicycling, etc. * Restrict stair-climbing for 7 days if possible, if not, climb up with your non-cath leg, then bring together on the same step. * Avoid lifting, pushing, pulling or excessive movement of the affected e xtremity for 7 days. * Customary sexual activity may be resumed after 2 days-use caution not to use a position that strains or causes pain to the affected extremity. * No driving for 24 hours. * NO SMOKING. * Avoid straining for bowel movements for 7 days. * Gentle walking on level ground is allowed. * Returning to work will depend on the type of procedure and the results. Your doctor will discuss this with you. CALL YOUR DOCTOR FOR ANY OF THE FOLLOWING: *If bleeding from the puncture site occurs- Apply gentle pressure to site with clean cloth and call your doctor or EMS. * If a knot or lump forms under the skin, increases in size, or causes pain. * If bruising appears to be worsening or moving further down your leg instead of disappearing. * Temperature above 101 F. CARE OF YOUR GROIN INCISION; * Bruising or purple discoloration of the skin near the puncture site is common. * You may shower only, no bathtub bathing for 5 days. Be careful to avoid slipping as your leg may feel stiff. * If a closure device was used on your femoral artery, please see the attached guide regarding care of the device and your leg. * Leave dressing on FOR 24 hours. CARE OF YOUR WRIST INCISION; * Bruising or purple discoloration of the skin near the puncture site is common. * You may shower. * DO NOT submerge wrist. * Leave dressing on FOR 24 hours. NICHOLE JENSEN MD [facility] Jan 23, 2023 17:25
[2023-01-23] MEDS ORDERED: NS IV 1000 ML 1,000 ML IV SCH (17:30)
[2023-01-23] MEDS ORDERED: PATIENT MAY USE OWN MEDS, ALL PO SCH (17:30)
== END 2023-01-23 21:00 | disposition home or self-care (01) ==
LOC: CATH 11:11 → EDSTATUS 13:00 → CATH 17:20 → CSD 17:20 → CATH 21:00 → CSD 21:00
PROVIDERS: ATTEND Internal Medicine Cardiovascular Disease
DX: I25.10 Atherosclerotic heart disease of native coronary artery without angina pectoris (principal); I08.1 Rheumatic disorders of both mitral and tricuspid valves; I42.9 Cardiomyopathy, unspecified; I10 Essential (primary) hypertension; R22.43 Localized swelling, mass and lump, lower limb, bilateral; R94.31 Abnormal electrocardiogram [ECG] [EKG]; K40.90 Unilateral inguinal hernia, without obstruction or gangrene, not specified as recurrent; I65.23 Occlusion and stenosis of bilateral carotid arteries; I71.20 Thoracic aortic aneurysm, without rupture, unspecified; I25.2 Old myocardial infarction; E78.5 Hyperlipidemia, unspecified; E78.2 Mixed hyperlipidemia; Z28.310 Unvaccinated for COVID-19; Z85.46 Personal history of malignant neoplasm of prostate
CPT/HCPCS: 80053; 80061; 85027; 85610; 85730; 87081; 93005; 93458; C1760; C1769; C1894 ×2; 36415

== ENCOUNTER → 2023-03-26 | Outpatient (CLI) | payer MEDICARE ==
[~2023-03-26] MED LIST changes: +CATHETER FLUSH 10 ML SYR IV PRN; +CYAN250010 PO; +HOLD METFORMIN - RECEIVED CONTRAST 20 ML VIAL IV SCH; +IOHEXOL 350 MG/ML 100 ML (OMNIPAQUE 350) VIAL IV ONE; +MAGN250T13 PO; +NS 100 ML (IVPB) BAG IV ONE
[2023-03-26 14:23] LABS: CREATININE SERUM 0.82 MG/DL (0.60-1.30)
--- NOTE | 2023-03-26 15:52 | Diagnostic Imaging Report ---
PROCEDURE: CT angiography of the chest with contrast. TECHNIQUE: Multiple contiguous axial images were obtained through the chest after uneventful bolus administration of intravenous contrast. 3D reconstructed CTA MIP acquisitions were also performed. Auto Exposure Controls were utilized during the CT exam to meet ALARA standards for radiation dose reduction. DATE: March 26, 2023. INDICATION: 87-year-old male, followup thoracic aortic aneurysm. COMPARISON: CT angiography chest December 30, 2019. FINDINGS: There is no identified pulmonary nodule or lung mass. There are motion limitations of the exam. There are peripheral reticular opacities. There is no characteristic peripheral honeycombing. There is no airspace consolidation concerning for pneumonia. There is no pneumothorax. There is no pleural effusion. The central airways are patent. There are coronary artery calcifications and additional areas of atherosclerotic disease. There is no evidence of an aortic dissection or acute aortic injury. The thoracic aortic diameter at the level of the aortic root measures 4.1 x 4.1 cm in diameter. The diameter of the mid ascending thoracic aorta measures 3.7 x 3.7 cm. The diameter of the proximal descending thoracic aorta measures 3.2 x 3.3 cm. The diameter of the distal descending thoracic aorta measures 2.7 x 2.7 cm. This appears unchanged since December 30, 2019. There is nondiagnostic evaluation for pulmonary emboli given the timing of the contrast bolus. There is no identified abnormally enlarged mediastinal, hilar, or axillary lymph node meeting CT size criteria for adenopathy. There is a low-attenuation lesion in the left lobe of the liver on axial image 135, compatible with a benign cyst. There is an additional benign cyst in the left lobe of the liver on axial image 115. There are redemonstrated multiple compression deformities. 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 Dictated by: Dictated on workstation # [id number]
== END ==
LOC: RAD 13:43
PROVIDERS: ATTEND Internal Medicine Cardiovascular Disease
DX: I71.20 Thoracic aortic aneurysm, without rupture, unspecified (principal)
CPT/HCPCS: 36415; 71275; 82565; 84520